=== PATIENT | female | born 1935 | race Caucasian/White ===

== ENCOUNTER 2023-11-24 03:26 | Outpatient (RCR) | payer MEDICARE, OTHER, SELFPAY ==
[2023-11-24] MEDS: Normal Saline Flush 10 ML SYR IVP (12:17)
[2023-11-24 12:46] LABS: Abs Immature Grans 0.03 10^3/uL (0.0-0.06); Absolute Basophil Count 0.05 10^3/uL (0.0-0.2); Absolute Lymphocyte Count 0.66 10^3/uL (1.2-3.4); Absolute Monocyte Count 0.96 10^3/uL (0.1-0.8); Absolute Neutrophil Count 3.87 10^3/uL (1.2-6.7); Basophils % 0.9; Eosinophils % 1.8; HCT 34.5 % (36.0-46.0); HGB 10.7 g/dL (11.2-15.7); Immature Grans % 0.5; Lymphocytes % 11.6; MCH 25.8 pg (27.0-33.0); MCV 83 fL (80-95); MPV 8.8 fL (8.0-11.0); Monocytes % 16.9; Neutrophils % 68.3; Platelet Count 201 10^3/uL (130-400); RBC 4.15 10^6/uL (3.93-5.22); RDW 21.5 % (11.7-14.6); RDW-SD 63.4 fL; WBC 5.67 10^3/uL (4.4-10.8)
[2023-11-24 12:51] LABS: ESR 77 mm/hr (0-30)
[2023-11-24 12:58] LABS: ALT 84 U/L (14-59); AST 35 U/L (15-37); Albumin 2.9 g/dL (3.4-5.0); Alkaline Phosphatase 587 U/L (46-116); Anion Gap 10.2 mmol/L (3-11); BUN 14 mg/dL (7-18); Bilirubin, Total 0.6 mg/dL (0.2-1.0); CO2 24.8 mmol/L (21.0-32.0); Calcium 9.7 mg/dL (8.5-10.1); Chloride 102 mmol/L (98-107); Estimated GFR 54.87 (mL/min/1.73m2); Glucose 138 mg/dL (74-106); LDH 284 U/L (81-234); Sodium 137 mmol/L (136-145); Total Protein 7.8 g/dL (6.4-8.2); Uric Acid 3.5 mg/dL (2.6-6.0)
[2023-11-24 13:05] LABS: Anisocytosis 2+; Diff Comment Diff Reviewed
== END 2023-11-24 23:59 | disposition home or self-care (01) ==
LOC: INF 03:26
PROVIDERS: PCP Family Medicine; Visit Provider Internal Medicine Hematology & Oncology
DX: C81.28 Mixed cellularity Hodgkin lymphoma, lymph nodes of multiple sites (principal)
CPT/HCPCS: 36591; 80053; 85652; 83615; 84550; 85025

== ENCOUNTER 2023-12-22 02:34 | Outpatient (RCR) | payer MEDICARE, OTHER, SELFPAY ==
[2023-12-01] MEDS: Normal Saline Flush 10 ML SYR IVP (07:43)
[2023-12-01 07:56] LABS: Abs Immature Grans 0.05 10^3/uL (0.0-0.06); Absolute Basophil Count 0.05 10^3/uL (0.0-0.2); Absolute Eosinophil Count 0.12 10^3/uL (0.0-0.7); Absolute Monocyte Count 1.03 10^3/uL (0.1-0.8); Absolute Neutrophil Count 3.49 10^3/uL (1.2-6.7); Basophils % 0.9; Eosinophils % 2.2; HCT 32.5 % (36.0-46.0); HGB 10.3 g/dL (11.2-15.7); Immature Grans % 0.9; Lymphocytes % 12.9; MCH 26.3 pg (27.0-33.0); MCHC 31.7 % (32.0-36.0); MCV 83 fL (80-95); MPV 9.1 fL (8.0-11.0); Monocytes % 18.9; Neutrophils % 64.2; Platelet Count 208 10^3/uL (130-400); RBC 3.92 10^6/uL (3.93-5.22); RDW 22.2 % (11.7-14.6); RDW-SD 66.3 fL; WBC 5.44 10^3/uL (4.4-10.8)
[2023-12-01 08:08] LABS: ESR 70 mm/hr (0-30)
[2023-12-01 08:11] LABS: ALT 37 U/L (14-59); AST 21 U/L (15-37); Albumin 2.7 g/dL (3.4-5.0); Alkaline Phosphatase 274 U/L (46-116); Anion Gap 11.2 mmol/L (3-11); BUN 33 mg/dL (7-18); Bilirubin, Total 0.4 mg/dL (0.2-1.0); CO2 22.8 mmol/L (21.0-32.0); Chloride 102 mmol/L (98-107); Estimated GFR 54.87 (mL/min/1.73m2); Glucose 217 mg/dL (74-106); LDH 220 U/L (81-234); Potassium 3.9 mmol/L (3.5-5.1); Sodium 136 mmol/L (136-145); Total Protein 7.4 g/dL (6.4-8.2); Uric Acid 3.6 mg/dL (2.6-6.0)
[2023-12-01 08:23] LABS: Anisocytosis 2+; Diff Comment RBC Morph Reviewed
[2023-12-22] MEDS: Normal Saline Flush 10 ML SYR IVP (08:00)
[2023-12-22 08:44] LABS: Abs Immature Grans 0.03 10^3/uL (0.0-0.06); Absolute Basophil Count 0.07 10^3/uL (0.0-0.2); Absolute Eosinophil Count 0.06 10^3/uL (0.0-0.7); Absolute Lymphocyte Count 0.62 10^3/uL (1.2-3.4); Absolute Monocyte Count 1.48 10^3/uL (0.1-0.8); Absolute Neutrophil Count 3.86 10^3/uL (1.2-6.7); Basophils % 1.1; HCT 34.4 % (36.0-46.0); Immature Grans % 0.5; Lymphocytes % 10.1; MCH 27.6 pg (27.0-33.0); MCV 86 fL (80-95); MPV 8.9 fL (8.0-11.0); Monocytes % 24.2; Neutrophils % 63.1; Platelet Count 227 10^3/uL (130-400); RBC 3.99 10^6/uL (3.93-5.22); RDW 22.8 % (11.7-14.6); RDW-SD 72.2 fL; WBC 6.12 10^3/uL (4.4-10.8)
[2023-12-22 08:48] LABS: ESR 65 mm/hr (0-30)
[2023-12-22 09:04] LABS: Anisocytosis 1+; Diff Comment Diff Reviewed
[2023-12-22 09:08] LABS: ALT 23 U/L (14-59); AST 19 U/L (15-37); Albumin 2.8 g/dL (3.4-5.0); Alkaline Phosphatase 118 U/L (46-116); Anion Gap 12.2 mmol/L (3-11); BUN 36 mg/dL (7-18); Bilirubin, Total 0.4 mg/dL (0.2-1.0); CO2 21.8 mmol/L (21.0-32.0); CREATININE 1.2 mg/dL (0.55-1.02); Calcium 9.2 mg/dL (8.5-10.1); Chloride 101 mmol/L (98-107); Estimated GFR 44.08 (mL/min/1.73m2); Glucose 234 mg/dL (74-106); LDH 216 U/L (81-234); Potassium 3.9 mmol/L (3.5-5.1); Sodium 135 mmol/L (136-145); Total Protein 7.5 g/dL (6.4-8.2)
== END 2023-12-23 23:59 | disposition home or self-care (01) ==
LOC: INF 02:34
PROVIDERS: PCP Family Medicine; Visit Provider Internal Medicine Hematology & Oncology
DX: C81.28 Mixed cellularity Hodgkin lymphoma, lymph nodes of multiple sites (principal); Z45.2 Encounter for adjustment and management of vascular access device
CPT/HCPCS: 36591; 80053; 85652; 83615; 84550; 85025

== ENCOUNTER 2024-01-19 04:28 | Outpatient (RCR) | payer MEDICARE, OTHER, SELFPAY ==
[2024-01-05] MEDS: Normal Saline Flush 10 ML SYR IVP (08:00)
[2024-01-05 08:40] LABS: Abs Immature Grans 0.01 10^3/uL (0.0-0.06); Absolute Basophil Count 0.04 10^3/uL (0.0-0.2); Absolute Eosinophil Count 0.07 10^3/uL (0.0-0.7); Absolute Lymphocyte Count 0.75 10^3/uL (1.2-3.4); Absolute Monocyte Count 0.78 10^3/uL (0.1-0.8); Absolute Neutrophil Count 1.53 10^3/uL (1.2-6.7); Basophils % 1.3; Eosinophils % 2.2; HCT 35.7 % (36.0-46.0); HGB 11.4 g/dL (11.2-15.7); Immature Grans % 0.3; Lymphocytes % 23.6; MCH 27.8 pg (27.0-33.0); MCHC 31.9 % (32.0-36.0); MCV 87 fL (80-95); MPV 8.9 fL (8.0-11.0); Monocytes % 24.5; Neutrophils % 48.1; Platelet Count 228 10^3/uL (130-400); RDW 21.9 % (11.7-14.6); RDW-SD 69.8 fL; WBC 3.18 10^3/uL (4.4-10.8)
[2024-01-05 08:43] LABS: ESR 51 mm/hr (0-30)
[2024-01-05 09:15] LABS: ALT 27 U/L (14-59); AST 18 U/L (15-37); Alkaline Phosphatase 90 U/L (46-116); Anion Gap 10.2 mmol/L (3-11); BUN 40 mg/dL (7-18); Bilirubin, Total 0.2 mg/dL (0.2-1.0); CO2 24.8 mmol/L (21.0-32.0); CREATININE 1.1 mg/dL (0.55-1.02); Calcium 9.2 mg/dL (8.5-10.1); Chloride 104 mmol/L (98-107); Estimated GFR 48.94 (mL/min/1.73m2); Glucose 203 mg/dL (74-106); LDH 181 U/L (81-234); Potassium 3.9 mmol/L (3.5-5.1); Sodium 139 mmol/L (136-145); Total Protein 7.5 g/dL (6.4-8.2); Uric Acid 4.2 mg/dL (2.6-6.0)
[2024-01-19] MEDS: Normal Saline Flush 10 ML SYR IVP (07:35)
[2024-01-19 08:23] LABS: Absolute Eosinophil Count 0.07 10^3/uL (0.0-0.7); Absolute Lymphocyte Count 1.24 10^3/uL (1.2-3.4); Absolute Monocyte Count 1.28 10^3/uL (0.1-0.8); Absolute Neutrophil Count 10.26 10^3/uL (1.2-6.7); Basophils % 1.1; Eosinophils % 0.5; HCT 37.2 % (36.0-46.0); HGB 12.1 g/dL (11.2-15.7); Immature Grans % 2.3; Lymphocytes % 9.3; MCH 28.9 pg (27.0-33.0); MCHC 32.5 % (32.0-36.0); MCV 89 fL (80-95); MPV 10.2 fL (8.0-11.0); Monocytes % 9.6; Neutrophils % 77.2; Platelet Count 161 10^3/uL (130-400); RBC 4.19 10^6/uL (3.93-5.22); RDW 21.7 % (11.7-14.6); RDW-SD 70.8 fL; WBC 13.29 10^3/uL (4.4-10.8)
[2024-01-19 08:25] LABS: Absolute Basophil Count 0.15 10^3/uL (0.0-0.2)
[2024-01-19 08:28] LABS: ESR 42 mm/hr (0-30)
[2024-01-19 09:05] LABS: ALT 30 U/L (14-59); AST 17 U/L (15-37); Albumin 3.2 g/dL (3.4-5.0); Alkaline Phosphatase 169 U/L (46-116); Anion Gap 10.8 mmol/L (3-11); BUN 43 mg/dL (7-18); Bilirubin, Total 0.2 mg/dL (0.2-1.0); CO2 24.2 mmol/L (21.0-32.0); CREATININE 1.1 mg/dL (0.55-1.02); Calcium 9.1 mg/dL (8.5-10.1); Chloride 103 mmol/L (98-107); Estimated GFR 48.94 (mL/min/1.73m2); Glucose 129 mg/dL (74-106); LDH 240 U/L (81-234); Potassium 3.9 mmol/L (3.5-5.1); Sodium 138 mmol/L (136-145); Total Protein 7.4 g/dL (6.4-8.2); Uric Acid 5.5 mg/dL (2.6-6.0)
== END 2024-01-23 23:59 | disposition home or self-care (01) ==
LOC: INF 04:28
PROVIDERS: PCP Family Medicine; Visit Provider Internal Medicine Hematology & Oncology
DX: C81.28 Mixed cellularity Hodgkin lymphoma, lymph nodes of multiple sites (principal); Z45.2 Encounter for adjustment and management of vascular access device
CPT/HCPCS: 36591; 80053; 85652; 83615; 84550; 85025

== ENCOUNTER 2024-02-16 04:47 | Outpatient (RCR) | payer MEDICARE, OTHER, SELFPAY ==
[2024-02-02 08:48] LABS: Absolute Basophil Count 0.07 10^3/uL (0.0-0.2); Basophils % 0.5; Eosinophils % 0.7; HCT 36.1 % (36.0-46.0); HGB 11.6 g/dL (11.2-15.7); Immature Grans % 2.2; Lymphocytes % 7.7; MCH 29.2 pg (27.0-33.0); MCHC 32.1 % (32.0-36.0); MCV 91 fL (80-95); Monocytes % 9.6; Neutrophils % 79.3; Platelet Count 151 10^3/uL (130-400); RBC 3.97 10^6/uL (3.93-5.22); RDW 20.4 % (11.7-14.6); RDW-SD 68.1 fL; WBC 13.82 10^3/uL (4.4-10.8)
[2024-02-02 08:54] LABS: ESR 32 mm/hr (0-30)
[2024-02-02 09:03] LABS: Absolute Lymphocyte Count 1.06 10^3/uL (1.2-3.4); Absolute Monocyte Count 1.33 10^3/uL (0.1-0.8); Absolute Neutrophil Count 10.96 10^3/uL (1.2-6.7)
[2024-02-02 09:06] LABS: ALT 33 U/L (14-59); AST 16 U/L (15-37); Albumin 3.2 g/dL (3.4-5.0); Alkaline Phosphatase 163 U/L (46-116); Anion Gap 10.8 mmol/L (3-11); BUN 33 mg/dL (7-18); Bilirubin, Total 0.2 mg/dL (0.2-1.0); CO2 24.2 mmol/L (21.0-32.0); CREATININE 1.1 mg/dL (0.55-1.02); Calcium 8.7 mg/dL (8.5-10.1); Chloride 105 mmol/L (98-107); Estimated GFR 48.94 (mL/min/1.73m2); Glucose 179 mg/dL (74-106); LDH 206 U/L (81-234); Sodium 140 mmol/L (136-145); Total Protein 7.1 g/dL (6.4-8.2); Uric Acid 5.5 mg/dL (2.6-6.0)
[2024-02-02 09:21] LABS: Anisocytosis 1+; Diff Comment RBC Morph Reviewed
[2024-02-02] MEDS: Normal Saline Flush 10 ML SYR IVP (09:30)
[2024-02-16] MEDS: Normal Saline Flush 10 ML SYR IVP (08:13)
[2024-02-16 08:24] LABS: Abs Immature Grans 0.35 10^3/uL (0.0-0.06); Absolute Eosinophil Count 0.07 10^3/uL (0.0-0.7); Absolute Lymphocyte Count 1.25 10^3/uL (1.2-3.4); Absolute Monocyte Count 1.38 10^3/uL (0.1-0.8); Basophils % 0.8; Eosinophils % 0.5; HGB 11.3 g/dL (11.2-15.7); Immature Grans % 2.4; Lymphocytes % 8.6; MCH 30.1 pg (27.0-33.0); MCHC 33.2 % (32.0-36.0); MCV 91 fL (80-95); MPV 9.7 fL (8.0-11.0); Monocytes % 9.5; Neutrophils % 78.2; Platelet Count 156 10^3/uL (130-400); RBC 3.75 10^6/uL (3.93-5.22); RDW 19.7 % (11.7-14.6); WBC 14.53 10^3/uL (4.4-10.8)
[2024-02-16 08:26] LABS: Absolute Basophil Count 0.12 10^3/uL (0.0-0.2); Absolute Neutrophil Count 11.36 10^3/uL (1.2-6.7)
[2024-02-16 08:28] LABS: ESR 25 mm/hr (0-30)
[2024-02-16 08:48] LABS: ALT 25 U/L (14-59); AST 11 U/L (15-37); Albumin 3.3 g/dL (3.4-5.0); Alkaline Phosphatase 169 U/L (46-116); Anion Gap 10.1 mmol/L (3-11); BUN 37 mg/dL (7-18); Bilirubin, Total 0.2 mg/dL (0.2-1.0); CO2 22.9 mmol/L (21.0-32.0); CREATININE 1.1 mg/dL (0.55-1.02); Calcium 8.8 mg/dL (8.5-10.1); Chloride 107 mmol/L (98-107); Estimated GFR 48.94 (mL/min/1.73m2); Glucose 168 mg/dL (74-106); LDH 213 U/L (81-234); Potassium 3.8 mmol/L (3.5-5.1); Sodium 140 mmol/L (136-145); Total Protein 6.9 g/dL (6.4-8.2); Uric Acid 5.5 mg/dL (2.6-6.0)
== END 2024-02-22 23:59 | disposition home or self-care (01) ==
LOC: INF 04:47
PROVIDERS: PCP Family Medicine; Visit Provider Internal Medicine Hematology & Oncology
DX: C81.28 Mixed cellularity Hodgkin lymphoma, lymph nodes of multiple sites (principal); Z45.2 Encounter for adjustment and management of vascular access device
CPT/HCPCS: 36591; 80053; 85652; 83615; 84550; 85025

== ENCOUNTER 2024-03-15 04:55 | Outpatient (RCR) | payer MEDICARE, OTHER, SELFPAY ==
[2024-03-01 08:13] LABS: Abs Immature Grans 0.18 10^3/uL (0.0-0.06); Absolute Eosinophil Count 0.09 10^3/uL (0.0-0.7); Absolute Monocyte Count 1.22 10^3/uL (0.1-0.8); Absolute Neutrophil Count 9.63 10^3/uL (1.2-6.7); Basophils % 0.7 %; Eosinophils % 0.7 %; HCT 32.8 % (36.0-46.0); HGB 10.7 g/dL (11.2-15.7); Immature Grans % 1.5 %; MCH 30.5 pg (27.0-33.0); MCHC 32.6 % (32.0-36.0); MCV 93 fL (80-95); MPV 9.7 fL (8.0-11.0); Neutrophils % 79.1 %; Platelet Count 155 10^3/uL (130-400); RBC 3.51 10^6/uL (3.93-5.22); RDW 18.7 % (11.7-14.6); RDW-SD 64.1 fL; WBC 12.18 10^3/uL (4.4-10.8)
[2024-03-01 08:15] LABS: Absolute Basophil Count 0.09 10^3/uL (0.0-0.2); Absolute Lymphocyte Count 0.97 10^3/uL (1.2-3.4); ESR 16 mm/hr (0-30)
[2024-03-01] MEDS: Normal Saline Flush 10 ML SYR IVP (08:22)
[2024-03-01 08:28] LABS: ALT 27 U/L (14-59); AST 19 U/L (15-37); Alkaline Phosphatase 140 U/L (46-116); Anion Gap 11.4 mmol/L (3-11); BUN 32 mg/dL (7-18); Bilirubin, Total 0.2 mg/dL (0.2-1.0); CO2 22.6 mmol/L (21.0-32.0); CREATININE 0.9 mg/dL (0.55-1.02); Chloride 108 mmol/L (98-107); Estimated GFR 62.26 (mL/min/1.73m2); Glucose 182 mg/dL (74-106); LDH 236 U/L (81-234); Potassium 3.6 mmol/L (3.5-5.1); Sodium 142 mmol/L (136-145); Total Protein 6.1 g/dL (6.4-8.2); Uric Acid 4.9 mg/dL (2.6-6.0)
[2024-03-15] MEDS: Normal Saline Flush 10 ML SYR IVP (08:04)
[2024-03-15 08:42] LABS: Abs Immature Grans 0.21 10^3/uL (0.0-0.06); Absolute Basophil Count 0.08 10^3/uL (0.0-0.2); Absolute Eosinophil Count 0.07 10^3/uL (0.0-0.7); Absolute Lymphocyte Count 1.13 10^3/uL (1.2-3.4); Absolute Monocyte Count 1.23 10^3/uL (0.1-0.8); Absolute Neutrophil Count 8.95 10^3/uL (1.2-6.7); Basophils % 0.7 %; Eosinophils % 0.6 %; HCT 33.9 % (36.0-46.0); HGB 10.8 g/dL (11.2-15.7); Immature Grans % 1.8 %; Lymphocytes % 9.7 %; MCH 30.2 pg (27.0-33.0); MCHC 31.9 % (32.0-36.0); MCV 95 fL (80-95); Monocytes % 10.5 %; Neutrophils % 76.7 %; Platelet Count 168 10^3/uL (130-400); RBC 3.58 10^6/uL (3.93-5.22); RDW 18.2 % (11.7-14.6); RDW-SD 62.6 fL; WBC 11.67 10^3/uL (4.4-10.8)
[2024-03-15 08:53] LABS: ESR 24 mm/hr (0-30)
[2024-03-15 09:00] LABS: ALT 35 U/L (14-59); AST 19 U/L (15-37); Albumin 3.4 g/dL (3.4-5.0); Alkaline Phosphatase 156 U/L (46-116); Anion Gap 9.2 mmol/L (3-11); BUN 27 mg/dL (7-18); Bilirubin, Total 0.2 mg/dL (0.2-1.0); CO2 24.8 mmol/L (21.0-32.0); CREATININE 1.1 mg/dL (0.55-1.02); Calcium 8.9 mg/dL (8.5-10.1); Chloride 105 mmol/L (98-107); Estimated GFR 48.94 (mL/min/1.73m2); Glucose 174 mg/dL (74-106); LDH 197 U/L (81-234); Potassium 4.2 mmol/L (3.5-5.1); Sodium 139 mmol/L (136-145); Total Protein 6.8 g/dL (6.4-8.2); Uric Acid 5.4 mg/dL (2.6-6.0)
== END 2024-03-24 23:59 | disposition home or self-care (01) ==
LOC: INF 04:55
PROVIDERS: PCP Family Medicine; Visit Provider Internal Medicine Hematology & Oncology
DX: C81.28 Mixed cellularity Hodgkin lymphoma, lymph nodes of multiple sites (principal); Z45.2 Encounter for adjustment and management of vascular access device
CPT/HCPCS: 36591; 80053; 85652; 83615; 84550; 85025

== ENCOUNTER 2024-04-12 04:23 | Outpatient (RCR) | payer MEDICARE, OTHER, SELFPAY ==
[2024-03-29] MEDS: Normal Saline Flush 10 ML SYR IVP (09:05)
[2024-03-29 09:23] LABS: Abs Immature Grans 0.32 10^3/uL (0.0-0.06); Absolute Basophil Count 0.08 10^3/uL (0.0-0.2); Absolute Eosinophil Count 0.05 10^3/uL (0.0-0.7); Absolute Lymphocyte Count 1.12 10^3/uL (1.2-3.4); Absolute Monocyte Count 1.71 10^3/uL (0.1-0.8); Absolute Neutrophil Count 13.45 10^3/uL (1.2-6.7); Basophils % 0.5 %; Eosinophils % 0.3 %; HCT 32.5 % (36.0-46.0); HGB 10.6 g/dL (11.2-15.7); Immature Grans % 1.9 %; Lymphocytes % 6.7 %; MCH 30.9 pg (27.0-33.0); MCHC 32.6 % (32.0-36.0); MCV 95 fL (80-95); MPV 9.6 fL (8.0-11.0); Monocytes % 10.2 %; Neutrophils % 80.4 %; Platelet Count 180 10^3/uL (130-400); RBC 3.43 10^6/uL (3.93-5.22); RDW 18.4 % (11.7-14.6); RDW-SD 62.8 fL; WBC 16.73 10^3/uL (4.4-10.8)
[2024-03-29 09:26] LABS: ESR 31 mm/hr (0-30)
[2024-03-29 09:41] LABS: ALT 30 U/L (14-59); AST 17 U/L (15-37); Albumin 3.5 g/dL (3.4-5.0); Alkaline Phosphatase 159 U/L (46-116); Anion Gap 10.3 mmol/L (3-11); BUN 30 mg/dL (7-18); Bilirubin, Total 0.3 mg/dL (0.2-1.0); CO2 24.7 mmol/L (21.0-32.0); Chloride 106 mmol/L (98-107); Estimated GFR 54.87 (mL/min/1.73m2); Glucose 138 mg/dL (74-106); LDH 214 U/L (81-234); Potassium 3.9 mmol/L (3.5-5.1); Sodium 141 mmol/L (136-145); Total Protein 6.9 g/dL (6.4-8.2); Uric Acid 4.8 mg/dL (2.6-6.0)
[2024-04-12] MEDS: Normal Saline Flush 10 ML SYR IVP (08:30)
[2024-04-12 09:15] LABS: HCT 29.3 % (36.0-46.0); HGB 9.5 g/dL (11.2-15.7); MCH 31.6 pg (27.0-33.0); MCHC 32.4 % (32.0-36.0); MCV 97 fL (80-95); MPV 9.6 fL (8.0-11.0); Platelet Count 122 10^3/uL (130-400); RBC 3.01 10^6/uL (3.93-5.22); RDW-SD 60.5 fL
[2024-04-12 09:18] LABS: ESR 11 mm/hr (0-30)
[2024-04-12 09:30] LABS: ALT 29 U/L (14-59); AST 17 U/L (15-37); Albumin 3.2 g/dL (3.4-5.0); Alkaline Phosphatase 72 U/L (46-116); Anion Gap 8.2 mmol/L (3-11); BUN 22 mg/dL (7-18); Bilirubin, Total 0.3 mg/dL (0.2-1.0); CO2 24.8 mmol/L (21.0-32.0); CREATININE 0.9 mg/dL (0.55-1.02); Calcium 8.5 mg/dL (8.5-10.1); Chloride 108 mmol/L (98-107); Estimated GFR 62.26 (mL/min/1.73m2); Glucose 139 mg/dL (74-106); LDH 159 U/L (81-234); Potassium 3.8 mmol/L (3.5-5.1); Sodium 141 mmol/L (136-145); Total Protein 6.2 g/dL (6.4-8.2); Uric Acid 3.7 mg/dL (2.6-6.0)
[2024-04-12 09:52] LABS: WBC 1.38 10^3/uL (4.4-10.8)
[2024-04-12 09:54] LABS: Absolute Basophil Count 0.07 10^3/uL (0.0-0.2); Absolute Eosinophil Count 0.04 10^3/uL (0.0-0.7); Absolute Lymphocyte Count 0.44 10^3/uL (1.2-3.4); Absolute Monocyte Count 0.57 10^3/uL (0.1-0.8); Atypical Lymphocytes % 3 %
[2024-04-12 09:55] LABS: Diff Comment Manual Differential; RBC Morphology Normal
[2024-04-12 10:14] LABS: Absolute Neutrophil Count 0.26 10^3/uL (1.2-6.7)
== END 2024-04-23 23:59 | disposition home or self-care (01) ==
LOC: INF 04:23
PROVIDERS: PCP Family Medicine; Visit Provider Internal Medicine Hematology & Oncology
DX: C81.28 Mixed cellularity Hodgkin lymphoma, lymph nodes of multiple sites (principal); Z45.2 Encounter for adjustment and management of vascular access device
CPT/HCPCS: 36591; 80053; 85652; 83615; 84550; 85025

== ENCOUNTER 2024-05-24 01:37 | Outpatient (RCR) | payer MEDICARE, OTHER, SELFPAY ==
[2024-04-26] MEDS: Normal Saline Flush 10 ML SYR IVP (08:45)
[2024-04-26 09:00] LABS: Abs Immature Grans 0.08 10^3/uL (0.0-0.06); Absolute Basophil Count 0.11 10^3/uL (0.0-0.2); Absolute Eosinophil Count 0.14 10^3/uL (0.0-0.7); Absolute Lymphocyte Count 0.97 10^3/uL (1.2-3.4); Absolute Monocyte Count 1.42 10^3/uL (0.1-0.8); Absolute Neutrophil Count 7.55 10^3/uL (1.2-6.7); Basophils % 1.1 %; Eosinophils % 1.4 %; HCT 32.5 % (36.0-46.0); HGB 10.5 g/dL (11.2-15.7); Immature Grans % 0.8 %; Lymphocytes % 9.4 %; MCH 31.6 pg (27.0-33.0); MCHC 32.3 % (32.0-36.0); MCV 98 fL (80-95); MPV 9.4 fL (8.0-11.0); Monocytes % 13.8 %; Neutrophils % 73.5 %; Platelet Count 249 10^3/uL (130-400); RBC 3.32 10^6/uL (3.93-5.22); RDW 15.8 % (11.7-14.6); RDW-SD 56.4 fL; WBC 10.27 10^3/uL (4.4-10.8)
[2024-04-26 09:03] LABS: ESR 42 mm/hr (0-30)
[2024-04-26 09:16] LABS: ALT 31 U/L (14-59); AST 21 U/L (15-37); Albumin 3.2 g/dL (3.4-5.0); Alkaline Phosphatase 157 U/L (46-116); Anion Gap 8.5 mmol/L (3-11); BUN 30 mg/dL (7-18); Bilirubin, Total 0.23 mg/dL (0.2-1.0); CO2 24.5 mmol/L (21.0-32.0); Calcium 9.1 mg/dL (8.5-10.1); Chloride 106 mmol/L (98-107); Estimated GFR 54.87 (mL/min/1.73m2); Glucose 141 mg/dL (74-106); LDH 175 U/L (81-234); Potassium 4.2 mmol/L (3.5-5.1); Sodium 139 mmol/L (136-145); Uric Acid 4.6 mg/dL (2.6-6.0)
[2024-05-10] MEDS: Normal Saline Flush 10 ML SYR IVP (11:17)
[2024-05-10 11:43] LABS: Abs Immature Grans 0.18 10^3/uL (0.0-0.06); Absolute Basophil Count 0.08 10^3/uL (0.0-0.2); Absolute Lymphocyte Count 1.12 10^3/uL (1.2-3.4); Basophils % 0.6 %; Eosinophils % 1.3 %; HCT 32.7 % (36.0-46.0); HGB 10.5 g/dL (11.2-15.7); Immature Grans % 1.3 %; Lymphocytes % 8.4 %; MCH 31.6 pg (27.0-33.0); MCHC 32.1 % (32.0-36.0); MCV 99 fL (80-95); MPV 9.8 fL (8.0-11.0); Monocytes % 10.3 %; Neutrophils % 78.1 %; Platelet Count 200 10^3/uL (130-400); RBC 3.32 10^6/uL (3.93-5.22); RDW 15.9 % (11.7-14.6); RDW-SD 56.8 fL; WBC 13.35 10^3/uL (4.4-10.8)
[2024-05-10 11:44] LABS: Absolute Eosinophil Count 0.17 10^3/uL (0.0-0.7); Absolute Monocyte Count 1.38 10^3/uL (0.1-0.8); Absolute Neutrophil Count 10.43 10^3/uL (1.2-6.7)
[2024-05-10 11:45] LABS: ESR 21 mm/hr (0-30)
[2024-05-10 11:57] LABS: ALT 30 U/L (14-59); AST 17 U/L (15-37); Albumin 3.4 g/dL (3.4-5.0); Alkaline Phosphatase 139 U/L (46-116); Anion Gap 8.7 mmol/L (3-11); BUN 34 mg/dL (7-18); CO2 26.3 mmol/L (21.0-32.0); CREATININE 0.9 mg/dL (0.55-1.02); Chloride 105 mmol/L (98-107); Estimated GFR 62.26 (mL/min/1.73m2); Glucose 108 mg/dL (74-106); LDH 207 U/L (81-234); Potassium 4.2 mmol/L (3.5-5.1); Sodium 140 mmol/L (136-145); Total Protein 6.9 g/dL (6.4-8.2); Uric Acid 4.6 mg/dL (2.6-6.0)
[2024-05-24] MEDS: Normal Saline Flush 10 ML SYR IVP (11:00)
[2024-05-24 11:21] LABS: Abs Immature Grans 0.34 10^3/uL (0.0-0.06); Absolute Eosinophil Count 0.05 10^3/uL (0.0-0.7); Absolute Lymphocyte Count 1.27 10^3/uL (1.2-3.4); Absolute Monocyte Count 1.64 10^3/uL (0.1-0.8); Absolute Neutrophil Count 13.54 10^3/uL (1.2-6.7); Basophils % 0.6 %; Eosinophils % 0.3 %; HCT 34.8 % (36.0-46.0); HGB 11.1 g/dL (11.2-15.7); Lymphocytes % 7.5 %; MCH 31.4 pg (27.0-33.0); MCHC 31.9 % (32.0-36.0); MCV 99 fL (80-95); MPV 9.8 fL (8.0-11.0); Monocytes % 9.7 %; Neutrophils % 79.9 %; Platelet Count 184 10^3/uL (130-400); RBC 3.53 10^6/uL (3.93-5.22); RDW 15.9 % (11.7-14.6); RDW-SD 57.4 fL; WBC 16.95 10^3/uL (4.4-10.8)
[2024-05-24 11:25] LABS: ESR 23 mm/hr (0-30)
[2024-05-24 11:35] LABS: Diff Comment Agrees w/ Instrument; RBC Morphology Normal
[2024-05-24 11:46] LABS: ALT 29 U/L (14-59); AST 15 U/L (15-37); Albumin 3.3 g/dL (3.4-5.0); Alkaline Phosphatase 146 U/L (46-116); Anion Gap 7.1 mmol/L (3-11); BUN 32 mg/dL (7-18); Bilirubin, Total 0.12 mg/dL (0.2-1.0); CO2 26.9 mmol/L (21.0-32.0); CREATININE 0.9 mg/dL (0.55-1.02); Calcium 8.3 mg/dL (8.5-10.1); Chloride 107 mmol/L (98-107); Estimated GFR 62.26 (mL/min/1.73m2); Glucose 110 mg/dL (74-106); LDH 182 U/L (81-234); Potassium 3.9 mmol/L (3.5-5.1); Sodium 141 mmol/L (136-145); Total Protein 6.5 g/dL (6.4-8.2)
[2024-05-24 15:54] LABS: Uric Acid 4.9 mg/dL (2.6-6.0)
== END 2024-05-24 23:59 | disposition home or self-care (01) ==
LOC: INF 01:37
PROVIDERS: PCP Family Medicine; Visit Provider Internal Medicine Hematology & Oncology
DX: C81.28 Mixed cellularity Hodgkin lymphoma, lymph nodes of multiple sites (principal); Z45.2 Encounter for adjustment and management of vascular access device
CPT/HCPCS: 36591; 80053; 85652; 83615; 84550; 85025

== ENCOUNTER 2024-06-07 11:35 | Outpatient (RCR) | payer MEDICARE, OTHER, SELFPAY ==
[2024-06-07 12:31] LABS: Abs Immature Grans 0.22 10^3/uL (0.0-0.06); Absolute Basophil Count 0.09 10^3/uL (0.0-0.2); Absolute Eosinophil Count 0.08 10^3/uL (0.0-0.7); Absolute Lymphocyte Count 1.34 10^3/uL (1.2-3.4); Basophils % 0.6 %; Eosinophils % 0.5 %; HCT 33.2 % (36.0-46.0); HGB 10.6 g/dL (11.2-15.7); Immature Grans % 1.4 %; Lymphocytes % 8.5 %; MCH 31.5 pg (27.0-33.0); MCHC 31.9 % (32.0-36.0); MCV 99 fL (80-95); MPV 10.3 fL (8.0-11.0); Monocytes % 11.3 %; Neutrophils % 77.7 %; Platelet Count 183 10^3/uL (130-400); RBC 3.36 10^6/uL (3.93-5.22); RDW 16.3 % (11.7-14.6); RDW-SD 59.6 fL; WBC 15.81 10^3/uL (4.4-10.8)
[2024-06-07 12:33] LABS: Absolute Monocyte Count 1.79 10^3/uL (0.1-0.8); Absolute Neutrophil Count 12.28 10^3/uL (1.2-6.7); ESR 18 mm/hr (0-30)
[2024-06-07 12:46] LABS: Diff Comment Diff Reviewed
[2024-06-07 12:47] LABS: Anisocytosis 1+
[2024-06-07 12:56] LABS: ALT 32 U/L (14-59); AST 21 U/L (15-37); Albumin 3.5 g/dL (3.4-5.0); Alkaline Phosphatase 155 U/L (46-116); Anion Gap 6.9 mmol/L (3-11); BUN 32 mg/dL (7-18); CO2 27.1 mmol/L (21.0-32.0); CREATININE 1.1 mg/dL (0.55-1.02); Calcium 9.1 mg/dL (8.5-10.1); Chloride 105 mmol/L (98-107); Estimated GFR 48.94 (mL/min/1.73m2); Glucose 130 mg/dL (74-106); LDH 192 U/L (81-234); Potassium 4.3 mmol/L (3.5-5.1); Sodium 139 mmol/L (136-145); Total Protein 6.9 g/dL (6.4-8.2)
[2024-06-07] MEDS: Normal Saline Flush 10 ML SYR IVP (13:52)
== END 2024-06-24 23:59 | disposition home or self-care (01) ==
LOC: INF 11:35
PROVIDERS: PCP Family Medicine; Visit Provider Internal Medicine Hematology & Oncology
DX: C81.28 Mixed cellularity Hodgkin lymphoma, lymph nodes of multiple sites (principal); Z45.2 Encounter for adjustment and management of vascular access device
CPT/HCPCS: 36591; 80053; 85652; 83615; 84550; 85025

== ENCOUNTER 2024-08-23 08:35 | Outpatient (RCR) | payer MEDICARE, OTHER, SELFPAY ==
[2024-08-02 08:28] LABS: Abs Immature Grans 0.01 10^3/uL (0.0-0.06); Absolute Basophil Count 0.06 10^3/uL (0.0-0.2); Absolute Eosinophil Count 0.09 10^3/uL (0.0-0.7); Absolute Lymphocyte Count 0.94 10^3/uL (1.2-3.4); Absolute Monocyte Count 0.81 10^3/uL (0.1-0.8); Absolute Neutrophil Count 2.31 10^3/uL (1.2-6.7); Basophils % 1.4 %; Eosinophils % 2.1 %; HCT 36.2 % (36.0-46.0); HGB 11.8 g/dL (11.2-15.7); Immature Grans % 0.2 %; Lymphocytes % 22.3 %; MCH 31.5 pg (27.0-33.0); MCHC 32.6 % (32.0-36.0); MCV 97 fL (80-95); MPV 9.9 fL (8.0-11.0); Monocytes % 19.2 %; Neutrophils % 54.8 %; Platelet Count 137 10^3/uL (130-400); RBC 3.75 10^6/uL (3.93-5.22); RDW 14.6 % (11.7-14.6); RDW-SD 51.4 fL; WBC 4.22 10^3/uL (4.4-10.8)
[2024-08-02 08:30] LABS: ESR 17 mm/hr (0-30)
[2024-08-02 08:52] LABS: ALT 33 U/L (14-59); AST 20 U/L (15-37); Albumin 3.4 g/dL (3.4-5.0); Alkaline Phosphatase 70 U/L (46-116); Anion Gap 10.1 mmol/L (3-11); BUN 33 mg/dL (7-18); Bilirubin, Total 0.32 mg/dL (0.2-1.0); CO2 26.9 mmol/L (21.0-32.0); CREATININE 1.1 mg/dL (0.55-1.02); Calcium 9.4 mg/dL (8.5-10.1); Chloride 106 mmol/L (98-107); Estimated GFR 48.94 (mL/min/1.73m2); Glucose 149 mg/dL (74-106); LDH 202 U/L (81-234); Potassium 3.9 mmol/L (3.5-5.1); Sodium 143 mmol/L (136-145); Uric Acid 4.4 mg/dL (2.6-6.0)
[2024-08-02] MEDS: Normal Saline Flush 10 ML SYR IVP (10:42)
[2024-08-23] MEDS: Normal Saline Flush 10 ML SYR IVP (08:43)
[2024-08-23 08:59] LABS: Abs Immature Grans 0.01 10^3/uL (0.0-0.06); Absolute Basophil Count 0.04 10^3/uL (0.0-0.2); Absolute Eosinophil Count 0.02 10^3/uL (0.0-0.7); Absolute Lymphocyte Count 1.05 10^3/uL (1.2-3.4); Absolute Monocyte Count 0.78 10^3/uL (0.1-0.8); Absolute Neutrophil Count 1.69 10^3/uL (1.2-6.7); Basophils % 1.1 %; Eosinophils % 0.6 %; HCT 37.4 % (36.0-46.0); HGB 12.2 g/dL (11.2-15.7); Immature Grans % 0.3 %; Lymphocytes % 29.2 %; MCHC 32.6 % (32.0-36.0); MCV 95 fL (80-95); MPV 9.4 fL (8.0-11.0); Monocytes % 21.7 %; Neutrophils % 47.1 %; Platelet Count 176 10^3/uL (130-400); RBC 3.94 10^6/uL (3.93-5.22); RDW 14.2 % (11.7-14.6); RDW-SD 49.5 fL; WBC 3.59 10^3/uL (4.4-10.8)
[2024-08-23 09:05] LABS: ESR 21 mm/hr (0-30)
[2024-08-23 09:24] LABS: ALT 33 U/L (14-59); AST 25 U/L (15-37); Albumin 3.3 g/dL (3.4-5.0); Alkaline Phosphatase 71 U/L (46-116); Anion Gap 9.9 mmol/L (3-11); BUN 27 mg/dL (7-18); Bilirubin, Total 0.32 mg/dL (0.2-1.0); CO2 25.1 mmol/L (21.0-32.0); CREATININE 1.2 mg/dL (0.55-1.02); Calcium 9.2 mg/dL (8.5-10.1); Chloride 106 mmol/L (98-107); Estimated GFR 44.08 (mL/min/1.73m2); Glucose 232 mg/dL (74-106); Sodium 141 mmol/L (136-145)
== END 2024-08-24 23:59 | disposition home or self-care (01) ==
LOC: INF 08:35
PROVIDERS: PCP Family Medicine; Visit Provider Internal Medicine Hematology & Oncology
DX: C81.28 Mixed cellularity Hodgkin lymphoma, lymph nodes of multiple sites (principal); Z45.2 Encounter for adjustment and management of vascular access device
CPT/HCPCS: 36591; 80053; 85652; 96523; 83615; 84550; 85025

== ENCOUNTER 2024-09-13 02:07 | Outpatient (RCR) | payer MEDICARE, OTHER, SELFPAY ==
[2024-09-13] MEDS: Normal Saline Flush 10 ML SYR IVP (08:20)
[2024-09-13 09:11] LABS: Abs Immature Grans 0.01 10^3/uL (0.0-0.06); Absolute Basophil Count 0.05 10^3/uL (0.0-0.2); Absolute Eosinophil Count 0.05 10^3/uL (0.0-0.7); Absolute Lymphocyte Count 1.05 10^3/uL (1.2-3.4); Absolute Monocyte Count 0.98 10^3/uL (0.1-0.8); Absolute Neutrophil Count 2.38 10^3/uL (1.2-6.7); Basophils % 1.1 %; Eosinophils % 1.1 %; HCT 36.5 % (36.0-46.0); Immature Grans % 0.2 %; Lymphocytes % 23.2 %; MCH 31.1 pg (27.0-33.0); MCHC 32.9 % (32.0-36.0); MCV 95 fL (80-95); MPV 9.7 fL (8.0-11.0); Monocytes % 21.7 %; Neutrophils % 52.7 %; Platelet Count 186 10^3/uL (130-400); RBC 3.86 10^6/uL (3.93-5.22); RDW 14.2 % (11.7-14.6); RDW-SD 48.6 fL; WBC 4.52 10^3/uL (4.4-10.8)
[2024-09-13 09:12] LABS: ESR 18 mm/hr (0-30)
[2024-09-13 09:29] LABS: ALT 33 U/L (14-59); AST 23 U/L (15-37); Albumin 3.3 g/dL (3.4-5.0); Alkaline Phosphatase 71 U/L (46-116); Anion Gap 8.6 mmol/L (3-11); BUN 24 mg/dL (7-18); Bilirubin, Total 0.35 mg/dL (0.2-1.0); CO2 26.4 mmol/L (21.0-32.0); CREATININE 1.1 mg/dL (0.55-1.02); Chloride 107 mmol/L (98-107); Estimated GFR 48.94 (mL/min/1.73m2); Glucose 213 mg/dL (74-106); Potassium 3.8 mmol/L (3.5-5.1); Sodium 142 mmol/L (136-145); Total Protein 6.8 g/dL (6.4-8.2)
== END 2024-09-23 23:59 | disposition home or self-care (01) ==
LOC: INF 02:07
PROVIDERS: PCP Family Medicine; Visit Provider Internal Medicine Hematology & Oncology
DX: C81.28 Mixed cellularity Hodgkin lymphoma, lymph nodes of multiple sites (principal); Z45.2 Encounter for adjustment and management of vascular access device
CPT/HCPCS: 36591; 80053; 85652; 85025

== ENCOUNTER 2025-01-17 08:02 | Outpatient (RCR) | payer MEDICARE, OTHER, SELFPAY ==
[2025-01-17 08:14] LABS: Abs Immature Grans 0.02 10^3/uL (0.0-0.06); Absolute Basophil Count 0.07 10^3/uL (0.0-0.2); Absolute Eosinophil Count 0.15 10^3/uL (0.0-0.7); Absolute Lymphocyte Count 1.51 10^3/uL (1.2-3.4); Absolute Monocyte Count 0.79 10^3/uL (0.1-0.8); Absolute Neutrophil Count 3.29 10^3/uL (1.2-6.7); Basophils % 1.2 %; Eosinophils % 2.6 %; HCT 37.9 % (36.0-46.0); HGB 12.3 g/dL (11.2-15.7); Immature Grans % 0.3 %; Lymphocytes % 25.9 %; MCH 30.3 pg (27.0-33.0); MCHC 32.5 % (32.0-36.0); MCV 93 fL (80-95); MPV 9.5 fL (8.0-11.0); Monocytes % 13.6 %; Neutrophils % 56.4 %; Platelet Count 161 10^3/uL (130-400); RBC 4.06 10^6/uL (3.93-5.22); RDW 14.1 % (11.7-14.6); RDW-SD 48.4 fL; WBC 5.83 10^3/uL (4.4-10.8)
[2025-01-17 08:16] LABS: ESR 22 mm/hr (0-30)
[2025-01-17 08:30] LABS: ALT 29 U/L (14-59); AST 21 U/L (15-37); Albumin 3.4 g/dL (3.4-5.0); Alkaline Phosphatase 69 U/L (46-116); Anion Gap 5.8 mmol/L (3-11); BUN 31 mg/dL (7-18); Bilirubin, Total 0.4 mg/dL (0.2-1.0); CO2 28.2 mmol/L (21.0-32.0); CREATININE 1.1 mg/dL (0.55-1.02); Calcium 9.5 mg/dL (8.5-10.1); Chloride 104 mmol/L (98-107); Estimated GFR 48.63 (mL/min/1.73m2); Glucose 191 mg/dL (74-106); LDH 180 U/L (81-234); Potassium 3.9 mmol/L (3.5-5.1); Sodium 138 mmol/L (136-145); Total Protein 7.2 g/dL (6.4-8.2)
[2025-01-17 09:52] LABS: TSH 4.76 uIU/mL (0.36-3.74)
[2025-01-17] MEDS: Normal Saline Flush 10 ML SYR IVP (11:24)
== END 2025-01-22 23:59 | disposition home or self-care (01) ==
LOC: INF 08:02
PROVIDERS: PCP Family Medicine; Visit Provider Internal Medicine Hematology & Oncology
DX: C81.28 Mixed cellularity Hodgkin lymphoma, lymph nodes of multiple sites (principal); E03.9 Hypothyroidism, unspecified
CPT/HCPCS: 36591; 80053; 85652; 83615; 84443; 85025

== ENCOUNTER 2025-06-06 13:32 | Outpatient (RCR) | payer MEDICARE, OTHER, SELFPAY ==
[2025-06-06 13:47] LABS: ALT 24 U/L (14-59); AST 25 U/L (15-37); Albumin 3.4 g/dL (3.4-5.0); Alkaline Phosphatase 86 U/L (46-116); Anion Gap 7.5 mmol/L (3-11); BUN 21 mg/dL (7-18); Bilirubin, Total 0.3 mg/dL (0.2-1.0); CO2 24.5 mmol/L (21.0-32.0); Calcium 9.1 mg/dL (8.5-10.1); Chloride 105 mmol/L (98-107); Estimated GFR 48.63 (mL/min/1.73m2); Glucose 168 mg/dL (74-106); Potassium 4.3 mmol/L (3.5-5.1); Sodium 137 mmol/L (136-145); Total Protein 7.4 g/dL (6.4-8.2)
[2025-06-06 13:51] LABS: Abs Immature Grans 0.02 10^3/uL (0.0-0.06); HCT 39.5 % (36.0-46.0); HGB 12.9 g/dL (11.2-15.7); Immature Grans % 0.2 %; MCH 30.3 pg (27.0-33.0); MCHC 32.7 % (32.0-36.0); MCV 93 fL (80-95); MPV 10.4 fL (8.0-11.0); Platelet Count 179 10^3/uL (130-400); RBC 4.26 10^6/uL (3.93-5.22); RDW 13.2 % (11.7-14.6); RDW-SD 44.8 fL; WBC 8.75 10^3/uL (4.4-10.8)
[2025-06-06 14:02] LABS: ESR 35 mm/hr (0-30)
== END 2025-06-24 23:59 | disposition home or self-care (01) ==
LOC: INF 13:32
PROVIDERS: PCP Family Medicine; Visit Provider Internal Medicine Hematology & Oncology
DX: C81.2 Mixed cellularity Hodgkin lymphoma (principal)
CPT/HCPCS: 36415; 80053; 85652; 85025